=== PATIENT | male | born 1950 | race Caucasian/White ===

== ENCOUNTER 2018-02-26 18:20 | Emergency (ER) | payer OTHER ==
[~2018-02-26] VITALS: Ht 172.7 cm; Wt 106.1 kg
[2018-02-26] MEDS ORDERED: METHADONE10 MG PO (18:48)
[2018-02-26] MEDS ORDERED: OXYCODONE HCL10 MG PO (18:48)
[2018-02-26] MEDS ORDERED: FUROSEMIDE40 MG PO (18:49)
[2018-02-26 20:09] LABS: HEMATOCRIT 43.8 % (38.0-50.0); HEMOGLOBIN 15.9 G/DL (12.5-16.6); MCH 34.2 PG (29.0-34.0); MCHC 36.3 G/DL (30.0-36.0); MCV 94.2 FL (86-99); PLATELET COUNT 197 K/uL (156-360); RBC DIS.WIDTH-CV 12.6 % (11.8-14.6); RBC DIS.WIDTH-SD 43.6 % (39-53); RED BLOOD COUNT 4.65 M/uL (4.00-5.50); WHITE BLOOD COUNT 12.4 K/uL (4.1-10.2)
[2018-02-26 20:18] LABS: ALBUMIN 3.7 g/dL (3.2-4.8); CHLORIDE 99 mEq/L (99-109); POTASSIUM 3.7 mEq/L (3.7-5.4); SODIUM 134 mEq/L (136-147)
[2018-02-26 20:20] LABS: GLUCOSE 346 mg/dL (70-99); TOTAL PROTEIN 7.3 g/dL (6.4-8.3)
[2018-02-26 20:22] LABS: TOTAL BILIRUBIN 1.3 mg/dL (0.0-1.0)
[2018-02-26 20:24] LABS: ALKALINE PHOSPHATASE 95 IU/L (3-129); GFR ESTIMATE (CALCULATED) > 59 mL/min/ (58.99-99999)
[2018-02-26 20:25] LABS: UREA NITROGEN (BUN) 12 mg/dL (9-23)
[2018-02-26 20:26] LABS: AST (GOT) 15 IU/L (2-34)
[2018-02-26 20:27] LABS: ALT (GPT) 29 IU/L (3-49)
[2018-02-26] MEDS ORDERED: KEFLEX500 MG PO (22:49)
[2018-02-26] MEDS ORDERED: BACTRIM,SEPT1 TABLET PO (22:49)
[2018-02-26] MEDS ORDERED: METFORMIN HCL500 MG PO (22:49)
[2018-02-26 23:09] VITALS: BP 148/76
== END 2018-02-26 23:10 | disposition home or self-care (01) ==
LOC: EME 18:20
PROVIDERS: Physician Assistant
DX: L03.116 Cellulitis of left lower limb (principal); M79.662 Pain in left lower leg; E11.65 Type 2 diabetes mellitus with hyperglycemia; I10 Essential (primary) hypertension; K21.9 Gastro-esophageal reflux disease without esophagitis; J44.9 Chronic obstructive pulmonary disease, unspecified; F41.9 Anxiety disorder, unspecified; F32.9 Major depressive disorder, single episode, unspecified; F17.200 Nicotine dependence, unspecified, uncomplicated; Z87.442 Personal history of urinary calculi; Z90.49 Acquired absence of other specified parts of digestive tract
CPT/HCPCS: 73590; 80053; 85027; 93971; 99281; 99284; J0696

== ENCOUNTER 2018-02-28 17:27 | Emergency (ER) | payer OTHER ==
[~2018-02-28] VITALS: Ht 172.7 cm; Wt 104.5 kg
[~2018-02-28 17:27] MED LIST: BACTRIM,SEPT1 TABLET PO; FUROSEMIDE40 MG PO; KEFLEX500 MG PO; METFORMIN HCL500 MG PO; METHADONE10 MG PO; OXYCODONE HCL10 MG PO
[2018-02-28 18:25] LABS: BASOPHIL (%) 0.2 % (0-1); EOSINOPHIL (%) 0.3 % (0-5); HEMATOCRIT 43.4 % (38.0-50.0); HEMOGLOBIN 15.5 G/DL (12.5-16.6); IMMATURE GRANULOCYTE (%) 0.6 % (0.0-0.7); LYMPHOCYTE (%) 11.7 % (15-42); LYMPHOCYTE COUNT 1.5 K/uL (1.0-2.8); MCH 33.8 PG (29.0-34.0); MCHC 35.7 G/DL (30.0-36.0); MCV 94.6 FL (86-99); MONOCYTE COUNT 0.8 K/uL (0-0.8); NEUTROPHIL (%) 81.2 % (45-76); NEUTROPHIL COUNT 10.2 K/uL (1.8-6.4); PLATELET COUNT 227 K/uL (156-360); RBC DIS.WIDTH-CV 12.7 % (11.8-14.6); RBC DIS.WIDTH-SD 43.3 % (39-53); RED BLOOD COUNT 4.59 M/uL (4.00-5.50); WHITE BLOOD COUNT 12.5 K/uL (4.1-10.2)
[2018-02-28 18:35] LABS: CHLORIDE 99 mEq/L (99-109); POTASSIUM 4.1 mEq/L (3.7-5.4); SODIUM 134 mEq/L (136-147)
[2018-02-28 18:37] LABS: GLUCOSE 391 mg/dL (70-99)
[2018-02-28 18:41] LABS: CREATININE 1.3 mg/dL (0.6-1.3); GFR ESTIMATE (CALCULATED) 59 mL/min/ (58.99-99999)
[2018-02-28 18:42] LABS: UREA NITROGEN (BUN) 22 mg/dL (9-23)
[2018-02-28] MEDS ORDERED: BACTRIM,SEPT1 TABLET PO (21:13)
[2018-02-28 21:31] VITALS: BP 141/79
== END 2018-02-28 21:33 | disposition home or self-care (01) ==
LOC: EME 17:27
PROVIDERS: Physician Assistant
DX: L03.116 Cellulitis of left lower limb (principal); E11.65 Type 2 diabetes mellitus with hyperglycemia; I10 Essential (primary) hypertension; J44.9 Chronic obstructive pulmonary disease, unspecified; K21.9 Gastro-esophageal reflux disease without esophagitis; F32.9 Major depressive disorder, single episode, unspecified; F41.9 Anxiety disorder, unspecified; Z72.0 Tobacco use; Z90.49 Acquired absence of other specified parts of digestive tract
CPT/HCPCS: 80048; 82948; 83605; 85025; 99281; 99284; J0696; J7030

== ENCOUNTER 2018-03-02 09:55 | Inpatient (IN) | payer OTHER ==
[~2018-03-02] VITALS: Ht 170.2 cm; Wt 104.2 kg
[2018-03-02 10:50] LABS: BASOPHIL (%) 0.4 % (0-1); EOSINOPHIL (%) 0.4 % (0-5); HEMATOCRIT 42.6 % (38.0-50.0); HEMOGLOBIN 15.3 G/DL (12.5-16.6); IMMATURE GRANULOCYTE (%) 0.5 % (0.0-0.7); LYMPHOCYTE COUNT 1.1 K/uL (1.0-2.8); MCH 34.2 PG (29.0-34.0); MCHC 35.9 G/DL (30.0-36.0); MCV 95.1 FL (86-99); MONOCYTE (%) 5.6 % (3-12); MONOCYTE COUNT 0.4 K/uL (0-0.8); NEUTROPHIL (%) 79.1 % (45-76); NEUTROPHIL COUNT 5.9 K/uL (1.8-6.4); PLATELET COUNT 211 K/uL (156-360); RBC DIS.WIDTH-CV 12.4 % (11.8-14.6); RBC DIS.WIDTH-SD 43.3 % (39-53); RED BLOOD COUNT 4.48 M/uL (4.00-5.50); WHITE BLOOD COUNT 7.5 K/uL (4.1-10.2)
[2018-03-02 10:57] LABS: ALBUMIN 3.6 g/dL (3.2-4.8); CHLORIDE 102 mEq/L (99-109)
[2018-03-02 10:58] LABS: POTASSIUM 4.1 mEq/L (3.7-5.4); SODIUM 135 mEq/L (136-147)
[2018-03-02 11:00] LABS: GLUCOSE 294 mg/dL (70-99); TOTAL PROTEIN 7.5 g/dL (6.4-8.3)
[2018-03-02 11:02] LABS: TOTAL BILIRUBIN 1.1 mg/dL (0.0-1.0)
[2018-03-02 11:03] LABS: ALKALINE PHOSPHATASE 83 IU/L (3-129); CREATININE 0.9 mg/dL (0.6-1.3); GFR ESTIMATE (CALCULATED) > 59 mL/min/ (58.99-99999)
[2018-03-02 11:05] LABS: UREA NITROGEN (BUN) 11 mg/dL (9-23)
[2018-03-02 11:06] LABS: ALT (GPT) 26 IU/L (3-49); AST (GOT) 23 IU/L (2-34)
[2018-03-02 15:24] VITALS: BP 165/95
[2018-03-03 00:14] VITALS: BP 142/84
[2018-03-03 07:15] VITALS: BP 138/82
[2018-03-03 11:07] VITALS: BP 138/73
[2018-03-03 15:18] VITALS: BP 128/70
[2018-03-03 20:45] VITALS: BP 136/79
[2018-03-04] VITALS (7 sets, daily range): BP systolic 122–158; BP diastolic 67–92
[2018-03-04 06:38] LABS: HEMATOCRIT 43.7 % (38.0-50.0); HEMOGLOBIN 15.3 G/DL (12.5-16.6); MCH 33.1 PG (29.0-34.0); MCV 94.6 FL (86-99); PLATELET COUNT 224 K/uL (156-360); RBC DIS.WIDTH-CV 12.5 % (11.8-14.6); RBC DIS.WIDTH-SD 43.4 % (39-53); RED BLOOD COUNT 4.62 M/uL (4.00-5.50); WHITE BLOOD COUNT 6.1 K/uL (4.1-10.2)
[2018-03-04 07:01] LABS: CHLORIDE 104 MEQ/L (99-109); CREATININE 0.6 MG/DL (0.6-1.3); GFR ESTIMATE (CALCULATED) > 59 mL/min/ (58.99-99999); GLUCOSE 192 mg/dL (70-99); POTASSIUM 3.9 MEQ/L (3.7-5.4); SODIUM 140 MEQ/L (136-147); UREA NITROGEN (BUN) 11 mg/dL (9-23)
[2018-03-05 04:37] VITALS: BP 127/75
[2018-03-05 08:07] VITALS: BP 132/79
[2018-03-05 12:28] VITALS: BP 130/87
[2018-03-05] MEDS ORDERED: ACIDOPHILUS LA1 EACH PO (13:08)
[2018-03-05] MEDS ORDERED: BACTRIM,SEPT1 TABLET PO (13:08)
== END 2018-03-05 15:52 | disposition home health service (06) | DRG 603 ==
LOC: EME 09:55 → EDOF 14:07 → ENRESERV 14:08 → 4SOUTH 15:22
PROVIDERS: Emergency Medicine; Internal Medicine; Student in an Organized Health Care Education/Training Program
DX: L03.116 Cellulitis of left lower limb (principal); S81.802A Unspecified open wound, left lower leg, initial encounter; W22.8XXA Striking against or struck by other objects, initial encounter; I87.2 Venous insufficiency (chronic) (peripheral); S41.001A Unspecified open wound of right shoulder, initial encounter; E11.9 Type 2 diabetes mellitus without complications; J45.909 Unspecified asthma, uncomplicated; I10 Essential (primary) hypertension; G89.29 Other chronic pain; F17.210 Nicotine dependence, cigarettes, uncomplicated; E66.9 Obesity, unspecified; Z68.35 Body mass index [BMI] 35.0-35.9, adult; Z79.84 Long term (current) use of oral hypoglycemic drugs; Z91.19 Patient's noncompliance with other medical treatment and regimen; Z91.14 Patient's other noncompliance with medication regimen
CPT/HCPCS: 71045; 73701; 74177; 80048; 80053; 80202; 82948; 83605; 85025; 85027; 87070; 87075; 87077; 87147; 87186; 87205; 93005; 94640; 94760; 94799; 96365; 99281; 99284; A6214; A6260; G0378; J0295; J0690; J0696; J1644; J1815; J3010; J3370; J7030; J7050